=== PATIENT | female | born 2000 | race Two or more races ===

== ENCOUNTER 2021-11-19 14:26 | Emergency (ER) | payer OTHER ==
[2021-11-19 15:05] VITALS: BP 117/81; PULSE 71; RESP 19; TEMP 98; BMI 17.4
== END 2021-11-19 15:45 | disposition left against medical advice (07) ==
LOC: JER 14:26 → JERFT 14:26
DX: M54.50 Low back pain, unspecified (principal)
CPT/HCPCS: 99281-25